=== PATIENT | male | born 1960 | race Caucasian/White ===

== ENCOUNTER 2021-10-27 09:12 | Observation (INO) | payer MEDICARE, MEDICAID, SELFPAY ==
[2021-10-27] VITALS (15 sets, daily range): BP systolic 119–184; BP diastolic 60–89; PULSE 63–81; RESP 12–20; TEMP 36.1–36.8; O2SAT 96–100; BMI 36.6; BMI 36.3
--- NOTE | 2021-10-27 09:24 | EKG12_ITS ---
Test Reason : CHEST PAIN Blood Pressure : / mmHG Vent. Rate : 081 BPM Atrial Rate : 081 BPM P-R Int : 172 ms QRS Dur : 110 ms QT Int : 424 ms P-R-T Axes : 047 006 074 degrees QTc Int : 492 ms Normal sinus rhythm Prolonged QT Poor R- wave progression Abnormal ECG Confirmed by ADRIANE GARRIDO, BRIAN ([id number]), publishing editor JASON HAMLIN ([id number]) on 10/29/2021 11:35:34 AM Referred By: RIMA Confirmed By:BRIAN FORREST MD
--- NOTE | 2021-10-27 09:25 | EDS_ITS ---
HPI <Dr. Case Reyes MD - Last Filed: 10/27/21 14:02> History of Present Illness Chief Complaint: Chest Pain Informant: patient Onset/Context/Timing Onset: Hours (1) Activity at onset: sudden, onset and light activity Timing: Continuous Quality: Positive for Aching Location: Left Chest (w/ radiation into left jaw/ear) Current Severity: Mild (jaw/ear discomfort persists now but CP resolved) Maximum Severity: Severe Worsened By: Nothing; Not Worsened By Breathing Relieved By: Nothing Associated Symptoms: Negative for Nausea, Vomiting, Diaphoresis, Dyspnea, Cough, Lightheadedness and Palpitations Narrative Narrative: Patient with about 1 hour chest discomfort radiating to the left jaw/ear, he states he checked his blood pressure and it was normal, which he later qualifies around 160 systolic, and for that reason did not try nitroglycerin. He takes aspirin and Brilinta, he had a stent in 2019 and a year or 2 later had a 2-weighted bypass. He states the chest discomfort resolved on its own, he still has some mild left jaw/ear discomfort. He states this is different than when he had his [place], he had substernal discomfort and this is left-sided. Denies any recent illness. Recent Illness/Hospitalization: No PE Risk Factors: Negative for Recent Travel/Surgery, Recent Immobilization, Prior DVT or PE, Cancer and OCP + Smoking + >/=35 PFSH <Dr. Case Reyes MD - Last Filed: 10/27/21 14:02> [facility] Medical History (Updated 10/27/21 @ 13:[address] Don Kothari MD) CAD (coronary artery disease) GERD (gastroesophageal reflux disease) Myocardial infarct Type 2 diabetes mellitus Home Medications aspirin 81 mg PO DAILY@0800 05/07/14 [History Last Taken Unknown] insulin asp prt-insulin aspart [Novolog Mix 70-30 Vial] 6 - 30 unit SQ 4X/DAY 05/07/14 [History Last Taken Unknown] insulin glargine [Lantus SoloStar Pen] 23 units SUBCUT QHS 05/07/14 [History Las t Taken Unknown] metformin 1,000 mg PO DAILY 05/07/14 [History Last Taken Unknown] tramadol 50 mg PO TID 05/07/14 [History Last Taken Unknown] gabapentin 600 mg PO DAILY 07/23/14 [History Last Taken Unknown] Ranitidine [Zantac] 150 mg PO DAILY 07/30/14 [History Last Taken Unknown] oxycodone-acetaminophen 1 - 2 tab PO 4X/DAY PRN PRN #40 tab 07/30/14 [Rx Last Taken Unknown] Allergy/AdvReac Type Severity Reaction Status Date / Time cephalexin Allergy Other Verified 10/27/21 09:24 aspirin [ASA] AdvReac Other Verified 10/27/21 09:24 naproxen sodium [From Aleve] AdvReac Other Verified 10/27/21 09:24 Surgical History (Updated 10/27/21 @ 13:[address] Don Kothari MD) Hx of CABG Hx of heart artery stent Social History Smoking Status: Former smoker ROS <Dr. Case Reyes MD - Last Filed: 10/27/21 14:02> ROS ED Constitutional Constitutional ED: Denies chills or fever(s) Eyes Eyes: Denies change in vision or diplopia ENT ENT ED: Reports as per HPI and facial pain; Denies rhinorrhea or sore throat Cardiovascular Cardiovascular: Reports chest pain and pedal edema; Denies palpitations Respiratory/Chest Respiratory/Chest: Denies cough or dyspnea Gastrointestinal Gastrointestinal: Denies abdominal pain, diarrhea, nausea or vomiting Genitourinary Genitourinary ED: Denies dysuria or hematuria Musculoskeletal Musculoskeletal: Denies back pain or neck pain Integumentary Denies abscess or rash Neurologic Neurologic: Denies headache(s), paresthesias or weakness Psychiatric Psychiatric: Denies anxiety or suicidal thoughts EXAM <Dr. Case Reyes MD - Last Filed: 10/27/21 14:02> Physical Exam Const Vital Signs: 10/27/21 09:13 10/27/21 09:30 10/27/21 10:54 Temperature 97.0 F L Temperature Source Temporal Pulse Rate 81 73 Respiratory Rate 20 H 14 Blood Pressure 177/64 H 162/61 H Blood Pressure Mean 101 94 Pulse Ox 100 97 97 Oxygen Delivery Method Room Air Nasal Cannula Oxygen Flow Rate (L/min) 2 10/27/21 11:15 10/27/21 11:55 10/27/21 12:53 Temperature Temperature Source Pulse Rate 74 71 Respiratory Rate 12 16 Blood Pressure 146/60 H 119/65 134/64 H Blood Pressure Mean 88 83 87 Pulse Ox 97 98 Oxygen Delivery Method Room Air Room Air Oxygen Flow Rate (L/min) Positive well nourished and well developed General Appearance ED: well developed and NAD HEENT Reports moist mucous membranes HEENT Narrative: Nontender throughout face. No jaw malocclusion or trouble opening/trismus normocephalic and atraumatic Eyes PERRL and EOMs intact bilaterally Neck full ROM and supple Resp normal respiratory effort and clear to auscultation bilaterally Cardio regular rate and regular rhythm Cardio Narrative: Soft systolic murmur, LLSB, 2/6 GI non-tender and non-distended Auscultation: normoactive bowel sounds Palpation: soft Back/Spine no CVA tenderness General Back: other FROM Extremity normal to inspection General Extremety ED: Yes edema; Negative for pulses abnormal or tenderness General Extremity: edema bilateral lower extremity Details: moderate (w/ chronic stasis dermatitis, nontender and no acute cellulitis); Negative for pulses abnormal Neuro oriented x3, CN's II-XII intact bilaterally and no sensory deficits noted Sensorium / Orientation: awake and alert Motor Exam: strength 5/5 throughout Skin no rashes or lesions noted and no wounds <Dr. Don Kothari MD - Last Filed: 10/27/21 13:30> Physical Exam Const Vital Signs: 10/27/21 09:13 10/27/21 09:30 10/27/21 10:54 Temperature 97.0 F L Temperature Source Temporal Pulse Rate 81 73 Respiratory Rate 20 H 14 Blood Pressure 177/64 H 162/61 H Blood Pressure Mean 101 94 Pulse Ox 100 97 97 Oxygen Delivery Method Room Air Nasal Cannula Oxygen Flow Rate (L/min) 2 10/27/21 11:15 10/27/21 11:55 10/27/21 12:53 Temperature Temperature Source Pulse Rate 74 71 Respiratory Rate 12 16 Blood Pressure 146/60 H 119/65 134/64 H Blood Pressure Mean 88 83 87 Pulse Ox 97 98 Oxygen Delivery Method Room Air Room Air Oxygen Flow Rate (L/min) <Dr. Case Reyes MD - Last Filed: 10/27/21 14:02> Heart Score History: Moderately Suspicious ECG: Normal Age: >45 - <65 years Risk Factors: >/= 3 Risk Factors or History of CAD Troponin: </= Normal Limit Score: 4 MDM <Dr. Case Reyes MD - Last Filed: 10/27/21 14:02> [facility] Narrative Medical decision making narrative: Patient was given a nitroglycerin sublingual, his jaw/neck pain resolved. He did not have any recurrence of chest or neck/jaw pain while he was here. His initial troponin was within normal limits of 14. Given the concerning symptoms, we did a delta with another measurement of 2 hours, returned still within normal limits but significantly elevated compared with the initial 1 at 74. I discussed this with cardiology Dr. Kothari, he agrees with admission and advises Lovenox at this time. Lab Data Attestation: I reviewed the patient's lab results. Labs: Laboratory Results - last 24 hr 10/27/21 10/27/21 10/27/21 09:10 09:10 09:34 WBC 8.5 RBC 4.05 L Hgb 12.1 L Hct 36.5 L MCV 90.1 MCH 29.9 MCHC 33.2 RDW Std Deviation 43.5 RDW Coeff of Juan 13.2 Plt Count 269 MPV 11.0 Immature Gran % (Auto) 0.400 Neut % (Auto) 65.8 Lymph % (Auto) 26.4 [place] % (Auto) 4.2 Eos % (Auto) 2.5 Baso % (Auto) 0.7 Absolute Neuts (auto) 5.6 Absolute Lymphs (auto) 2.24 Nucleated RBC % 0 Sodium 137 Potassium 3.7 Chloride 104 Carbon Dioxide 26.0 Anion Gap 7 BUN 16 Creatinine 1.84 H Estim Creat Clear Calc 46.86 Est GFR (MDRD) Af Amer 48 L Est GFR (MDRD) Non-Af 40 L BUN/Creatinine Ratio 8.7 L Glucose 344 H Calcium 8.4 L Troponin I High Sens 14 10/27/21 11:55 WBC RBC Hgb Hct MCV MCH MCHC RDW Std Deviation RDW Coeff of Juan Plt Count MPV Immature Gran % (Auto) Neut % (Auto) Lymph % (Auto) [place] % (Auto) Eos % (Auto) Baso % (Auto) Absolute Neuts (auto) Absolute Lymphs (auto) Nucleated RBC % Sodium Potassium Chloride Carbon Dioxide Anion Gap BUN Creatinine Estim Creat Clear Calc Est GFR (MDRD) Af Amer Est GFR (MDRD) Non-Af BUN/Creatinine Ratio Glucose Calcium Troponin I High Sens 74 Radiography Diagnostic Testing: Clinical Impression(s) from Imaging Studies Chest X-Ray 10/27/21 09:35 IMPRESSION: Hyperinflation. Prior CABG. Electronically Signed: Cuba Hackett MD at 9:59 EDT , EKG Initial EKG: Attestation: I personally reviewed and interpreted this EKG as follows: Interpretation: Sinus Rhythm and No Acute Injury Pattern Comments: Normal EKG Prior EKG tracings: available for review Prior: Unchanged <Dr. Don Kothari MD - Last Filed: 10/27/21 13:30> [facility] Lab Data Labs: Laboratory Results - last 24 hr 10/27/21 10/27/21 10/27/21 09:10 09:10 09:34 WBC 8.5 RBC 4.05 L Hgb 12.1 L Hct 36.5 L MCV 90.1 MCH 29.9 MCHC 33.2 RDW Std Deviation 43.5 RDW Coeff of Juan 13.2 Plt Count 269 MPV 11.0 Immature Gran % (Auto) 0.400 Neut % (Auto) 65.8 Lymph % (Auto) 26.4 [place] % (Auto) 4.2 Eos % (Auto) 2.5 Baso % (Auto) 0.7 Absolute Neuts (auto) 5.6 Absolute Lymphs (auto) 2.24 Nucleated RBC % 0 Sodium 137 Potassium 3.7 Chloride 104 Carbon Dioxide 26.0 Anion Gap 7 BUN 16 Creatinine 1.84 H Estim Creat Clear Calc 46.86 Est GFR (MDRD) Af Amer 48 L Est GFR (MDRD) Non-Af 40 L BUN/Creatinine Ratio 8.7 L Glucose 344 H Calcium 8.4 L Troponin I High Sens 14 10/27/21 11:55 WBC RBC Hgb Hct MCV MCH MCHC RDW Std Deviation RDW Coeff of Juan Plt Count MPV Immature Gran % (Auto) Neut % (Auto) Lymph % (Auto) [place] % (Auto) Eos % (Auto) Baso % (Auto) Absolute Neuts (auto) Absolute Lymphs (auto) Nucleated RBC % Sodium Potassium Chloride Carbon Dioxide Anion Gap BUN Creatinine Estim Creat Clear Calc Est GFR (MDRD) Af Amer Est GFR (MDRD) Non-Af BUN/Creatinine Ratio Glucose Calcium Troponin I High Sens 74 Radiography Diagnostic Testing: Clinical Impression(s) from Imaging Studies Chest X-Ray 10/27/21 09:35 IMPRESSION: Hyperinflation. Prior CABG. Electronically Signed: Cuba Hackett MD at 9:59 EDT , Discharge Plan Dx/Rx/DC Orders Clinical Impression: Unstable angina Disposition Disposition: Acute Care Hospital [facility]
[2021-10-27] MEDS: Aspirin 81 MG TAB.CHEW PO (09:35)
--- NOTE | 2021-10-27 09:35 | RAD_ITS ---
STUDY: X-RAY CHEST REASON FOR EXAM: Male, 60 years old. Chest pain TECHNIQUE: Single AP portable view of the chest. COMPARISON: Comparison is made with prior study dated 10/30/2014. FINDINGS: EKG electrodes are seen. Hyperinflation. The lungs are clear. There is no demonstrated pleural abnormality. Sternal cerclage wires and vascular clips are present from a prior sternotomy and coronary artery bypass graft procedure (CABG). Normal mediastinum and claudio. Normal visualized pulmonary arteries. Normal visualized aortic arch and descending thoracic aorta. Normal visualized thoracic spine. Normal visualized ribs, clavicles, and shoulders. There is no demonstrated abnormality of the visualized soft tissue structures of the upper abdomen. RAD/Chest 1 View (Portable) IMPRESSION: Hyperinflation. Prior CABG. Electronically Signed: Cuba Hackett MD at 9:59 EDT ,
[2021-10-27 09:38] LABS: Absolute Lymphocyte Count 2.24 X10^3/uL (0.83-4.51); Absolute Neutrophil Count 5.6 X10^3/uL (2.0-7.7); Basophil# 0.06 X10^3/uL; Basophil% 0.7 % (0-1); Eosinophil# 0.21 X10^3/uL; Eosinophils% 2.5 % (0-5); Hematocrit 36.5 % (40-54); Hemoglobin 12.1 g/dL (13.0-16.5); Lymphocyte # 2.24 X10^3/ul (0.83-4.51); Lymphocyte % 26.4 % (19-41); Mean Corp Hgb Conc 33.2 g/dL (32-36); Mean Corpuscular Hgb 29.9 pg (27.0-32.0); Mean Corpuscular Volume 90.1 fL (80-94); Monocyte# 0.36 X10^3/uL; Monocyte% 4.2 % (0-10); NRBC Flagged by Analyzer 0 % (0-5); Neutrophil # 5.58 X10^3/uL (2.7-7.7); Neutrophil % 65.8 % (47-70); Platelet Count 269 K/mm3 (150-450); RBC Distribution Width CV 13.2 % (11.6-14.6); RBC Distribution Width SD 43.5 fl (35.1-43.9); Red Blood Count 4.05 M/mm3 (4.6-6.2); White Blood Count 8.5 K/mm3 (4.4-11.0)
[2021-10-27 09:52] LABS: Anion Gap 7 (5-15); BUN 16 mg/dL (7-18); BUN/Creat Ratio 8.7 RATIO (10-20); Calcium,Total 8.4 mg/dL (8.5-10.1); Chloride 104 mmol/L (98-107); Creatinine, Serum 1.84 mg/dL (0.70-1.30); EST Glomerular Filtration Rate 40 mL/min (>60); Est Glom Filt Rate - Afr Amer 48 mL/min (>60); Estimated Creatinine Clearance 46.86 ml/min; Glucose 344 mg/dL (74-106); Potassium 3.7 mmol/L (3.5-5.1); Sodium Level 137 mmol/L (136-145)
[2021-10-27 10:04] LABS: Troponin-I HS (w/2H Reflex) 14 pg/mL (3.0-78.0)
[2021-10-27 11:42] LABS: Reflex Troponin-HS? (from REC) Y
[2021-10-27 12:26] LABS: Troponin-I HS 74 pg/mL (3.0-78.0)
--- NOTE | 2021-10-27 13:30 | CON.PCM.CA_ITS ---
Assessment & Plan Assessment/Plan (1) Unstable angina: PLAN: He does have a history of chest discomfort which appears to be recent onset angina. I would recommend that he be admitted and have his cardiac enzymes cycled Echocardiogram to assess ventricular function Lovenox 1 mg/kg If his cardiac enzymes remain normal I would recommend a pharmacologic myocardial perfusion stress test He would also remain on beta-katerine and high intensity statin Depending on those findings further recommendations will be made (2) Hypertension: PLAN: He does have a history of hypertension and he presented with elevated blood pressure. We will continue to monitor his blood pressure during this admission. (3) Hx of CABG: PLAN: He does have a history of coronary artery bypass surgery preceded by previous angioplasty and stenting. We will try and obtain these reports and further recommendations will be made. Thank you for allowing me to participate in the care of your patient. Please don't hesitate to call if any issues arise. HPI Consult Data Date of Consult: 10/27/21 HPI Narrative HPI Narrative: MIREILLE KEENE, is a 60 M who presents the emergency room complaining of chest discomfort which had been going on for approximately an hour. He does have a history of coronary artery disease status post previous angioplasty and stenting of an unknown vessel and also status post coronary bypass surgery at [facility] approximately 2 years ago. He says that he has been doing quite well but has had some baseline chest pain since his bypass surgery which has been attributed to some of the sternal wires. However this morning he started having some chest discomfort which he says radiated towards his jaw. He did not have any diaphoresis no nausea no vomiting his blood pressure was noted to be elevated and since he has recently moved to [place] he decided to present to the emergency room. An EKG done demonstrated normal sinus rhythm with a rate of 81 bpm and no acute changes his troponin was normal. However due to the type of discomfort as well as his risk factors cardiology was called for further evaluation and management. He says that he has been compliant with his medications. ON LICENSE OF [facility] Medical History (Updated 10/27/21 @ 13:[address] Don Kothari MD) CAD (coronary artery disease) GERD (gastroesophageal reflux disease) Myocardial infarct Type 2 diabetes mellitus Home Medications aspirin 81 mg PO DAILY@0800 05/07/14 [History Last Taken Unknown] insulin asp prt-insulin aspart [Novolog Mix 70-30 Vial] 6 - 30 unit SQ 4X/DAY 05/07/14 [History Last Taken Unknown] insulin glargine [Lantus SoloStar Pen] 23 units SUBCUT QHS 05/07/14 [History Last Taken Unknown] metformin 1,000 mg PO DAILY 05/07/14 [History Last Taken Unknown] tramadol 50 mg PO TID 05/07/14 [History Last Taken Unknown] gabapentin 600 mg PO DAILY 07/23/14 [History Last Taken Unknown] Ranitidine [Zantac] 150 mg PO DAILY 07/30/14 [History Last Taken Unknown] oxycodone-acetaminophen 1 - 2 tab PO 4X/DAY PRN PRN #40 tab 07/30/14 [Rx Last Taken Unknown] Allergy/AdvReac Type Severity Reaction Status Date / Time cephalexin Allergy Other Verified 10/27/21 09:24 aspirin [ASA] AdvReac Other Verified 10/27/21 09:24 naproxen sodium [From Aleve] AdvReac Other Verified 10/27/21 09:24 Surgical History (Updated 10/27/21 @ 13:[address] Don Kothari MD) Hx of CABG Hx of heart artery stent Social History Smoking Status: Former smoker ROS Constitutional Constitutional: Denies fever(s) or weight loss Eyes Eyes: Reports systems reviewed and no addt'l complaints, except as documented ENT HEENT: Reports systems reviewed and no addt'l complaints, except as documented Cardiovascular Cardiovascular: Reports chest pain at rest and chest pain with activity; Denies dyspnea at rest, dyspnea on exertion, edema, palpitations or paroxysmal nocturnal dyspnea Respiratory/Chest Respiratory/Chest: Denies dyspnea on exertion, productive cough, shortness of breath at rest or shortness of breath with exertion Gastrointestinal Gastrointestinal: Denies change in bowel habits, nausea, vomiting or weight changes Genitourinary Genitourinary: Denies difficulty urinating Musculoskeletal Musculoskeletal: Denies joint stiffness or muscle weakness Integumentary Integumentary: Denies lesions Neurologic Neurologic: Denies dizziness or syncope Psychiatric Psychiatric: Denies anxiety Endocrine Endocrinology: Denies excessive sweating or fatigue Hematologic/Lymphatic Hematologic/Lymphatic: Denies anemia Allergic/Immunologic Allergic/Immunologic: Denies seasonal rhinorrhea Physical Exam Const alert, oriented x3 and no apparent distress General Appearance: cooperative HEENT hearing grossly normal bilaterally Head and Scalp: atraumatic Eyes EOMs intact bilaterally Neck General: normal visual inspection Chest inspection of chest normal and palpation of chest normal Resp normal respiratory effort Auscultation: clear to auscultation bilaterally Cardio regular rate, regular rhythm, S1 normal heart sound and S2 normal heart sound Jugular Venous Distention: JVD GI normal to inspection, nondistended, normoactive bowel sounds Extremity normal capillary refill and no pedal edema Peripheral Pulses: Yes pulses 2+ throughout and femoral pulses present Skin no rashes or lesions noted Neuro oriented x3 and CN's II-XII intact bilaterally Psych Appearance: grossly normal and appropriate Risk Stratification Risk Stratification Applicable: Yes Age >/= 65: No >/= 3 CAD Risk Factors (HTN, HLD, DM, family hx of CAD, or current smoker): Yes Aspirin Use in the Past 7 Days: Yes Severe Angina (>/= episodes in 24 hours): Yes EKG ST Changes >/= 0.5mm: No Positive Cardiac Marker: No VILMA Risk Stratification Score: 3 VILMA % Risk: 13% Risk Objective Data Vital Signs: Vital Signs Temp Pulse Resp BP Pulse Ox 97.0 F L 71 16 134/64 H 98 10/27/21 09:13 10/27/21 12:53 10/27/21 12:53 10/27/21 12:53 10/27/21 12:53 Oxygen Flow Rate (L/min) 2 Oxygen Delivery Method Room Air Weight: 270 lb 4.587 oz Body Mass Index (BMI) 36.6 Lab / Micro Data Result Diagrams: 10/27/21 09:10 10/27/21 09:10 Labs: Laboratory Results - last 24 hr 10/27/21 09:10: WBC 8.5, RBC 4.05 L, Hgb 12.1 L, Hct 36.5 L, MCV 90.1, MCH 29.9, MCHC 33.2, RDW Std Deviation 43.5, RDW Coeff of Juan 13.2, Plt Count 269, MPV 11.0, Immature Gran % (Auto) 0.400, Neut % (Auto) 65.8, Lymph % (Auto) 26.4, [place] % (Auto) 4.2, Eos % (Auto) 2.5, Baso % (Auto) 0.7, Absolute Neuts (auto) 5.6, Absolute Lymphs (auto) 2.24, Nucleated RBC % 0 10/27/21 09:10: Sodium 137, Potassium 3.7, Chloride 104, Carbon Dioxide 26.0, Anion Gap 7, BUN 16, Creatinine 1.84 H, Estim Creat Clear Calc 46.86, Est GFR (MDRD) Af Amer 48 L, Est GFR (MDRD) Non-Af 40 L, BUN/Creatinine Ratio 8.7 L, Glucose 344 H, Calcium 8.4 L 10/27/21 09:34: Troponin I High Sens 14 10/27/21 11:55: Troponin I High Sens 74 Cardiology Labs/Tests 10/27/21 09:10: WBC 8.5, RBC 4.05 L, Hgb 12.1 L, Hct 36.5 L, MCV 90.1, MCH 29.9, MCHC 33.2, Plt Count 269, MPV 11.0, Immature Gran % (Auto) 0.400, Neut % (Auto) 65.8, Lymph % (Auto) 26.4, [place]ws % (Auto) 4.2, Eos % (Auto) 2.5, Baso % (Auto) 0.7, Absolute Neuts (auto) 5.6, Nucleated RBC % 0 10/27/21 09:10: Sodium 137, Potassium 3.7, Chloride 104, Carbon Dioxide 26.0, Anion Gap 7, BUN 16, Creatinine 1.84 H, Est GFR (MDRD) Af Amer 48 L, Est GFR (MDRD) Non-Af 40 L, BUN/Creatinine Ratio 8.7 L, Glucose 344 H, Calcium 8.4 L Rhythm: EKG: ECHO: Stress Test: Cardiac Cath: PCI: CT Surgery: Holter monitor: EPS: PPM: CXR: Chest CT Scan: Radiography Diagnostic Testing: Radiology Impression Chest X-Ray 10/27/21 09:35 IMPRESSION: Hyperinflation. Prior CABG. Electronically Signed: Cuba Hackett MD at 9:59 EDT ,
--- NOTE | 2021-10-27 13:35 | ECHOCS_ITS ---
Reason For Study: s/p CABG Procedure This was a 2D Doppler, Color Flow transthoracic echocardiogram. The study was technically difficult. Contrast injection was performed. Exam performed portable in patient room. Left Ventricle Normal LV size. Moderate concentric left ventricular hypertrophy. Left ventricular systolic function is normal. The estimated ejection fraction is 60 %. Normal diastology for age. No regional wall motion abnormalities noted. Right Ventricle Normal RV size. Normal systolic function. Atria Normal left atrium. Normal right atrium. Mitral Valve Mitral valve not well visualized. Tricuspid Valve The tricuspid valve is not well visualized. Aortic Valve Normal aortic valve. Pulmonic Valve Normal pulmonic valve. Great Vessels Normal aortic root. The pulmonary artery is normal size. Normal inferior vena cava. Pericardium/Pleural No pericardial effusion. Medication Diluted definity 2ml given slow IV push to enhance endocardial definition. MMode/2D Measurements & Calculations LVIDd: 5.3 cm IVSd: 1.2 cm LA dimension: 3.9 cm LVIDs: 2.8 cm LVPWd: 1.7 cm FS: 46.7 % LAV(MOD-bp): 55.0 ml LA A4 area: 20.5 cm2 LAV(MOD-bp) Indexed: 22.7 ml/m2 LAV(MOD-sp2): 47.1 ml LAV(MOD-sp4): 63.0 ml Time Measurements MV dec time: 0.30 sec Doppler Measurements & Calculations MV E max francisco: 172.7 cm/sec Lat Peak E' Francisco: 7.8 cm/sec Med Peak E' Francisco: 7.0 cm/sec MV A max francisco: 113.6 cm/sec E/E' lat: 22.1 E/E' med: 24.8 MV E/A: 1.5 MV V2 max: 212.8 cm/sec MV P1/2t max francisco: 213.8 cm/sec Ao V2 max: 111.6 cm/sec MV max P.1 mmHg MV P1/2t: 81.4 msec Ao max P.0 mmHg MV V2 mean: 109.9 cm/sec MV dec slope: 769.7 cm/sec2 MV mean P.8 mmHg MV V2 VTI: 55.7 cm MVA(P1/2t): 2.7 cm2 LV V1 max: 107.0 cm/sec PA V2 max: 109.8 cm/sec LV V1 max P.6 mmHg ECHO/Echo Complete W/ Contrast Interpretation Summary Normal LV size. Left ventricular systolic function is normal. The estimated ejection fraction is 60 %. Normal diastology for age. Moderate concentric left ventricular hypertrophy. Contrast injection was performed. Ordering Physician: Don Kothari Referring Physician: Key Jennings Performed By: Hawk Markham RCS
[2021-10-27] MEDS: Enoxaparin 120 MG/0.8 ML Syringe SC (14:02)
--- NOTE | 2021-10-27 14:29 | PCM.HP.STD ---
HPI - General General Date of Admission: 10/27/21 HPI Narrative MIREILLE KEENE, is a 60 M who presents to the hospital with chest pain. It started today with exertion and was not his typical pain he says that he has been getting intermittent chest pain since his CABG about 2 years ago and that his principal mechanical engineer thought that it could also be due to one of his sternal wires. He states that this pain came this morning and lasted for about an hour. He had some associated jaw pain and neck pain on the left as well. In the ER EKG was unremarkable, initial troponin was 14 but repeat troponin was 74. Cardiology was consulted and given his history of coronary artery disease felt that admission would be appropriate for observation. He did receive a dose of therapeutic Lovenox in the ER and states that he takes his aspirin and his Brilinta regularly since he had a stent placed in 2019 as well. [facility] Medical History (Updated 10/27/21 @ 13:[address] Don Kothari MD) CAD (coronary artery disease) GERD (gastroesophageal reflux disease) Myocardial infarct Type 2 diabetes mellitus Home Medications insulin glargine [Lantus SoloStar Pen] 23 units SUBCUT QHS 05/07/14 [History Last Taken Unknown] tramadol 50 mg PO TID 05/07/14 [History Last Taken Unknown] gabapentin 600 mg PO DAILY 07/23/14 [History Last Taken Unknown] amlodipine 10 mg PO DAILY 10/27/21 [History Last Taken 10/25/21] aspirin [Aspirin Low Dose] 81 mg PO DAILY 10/27/21 [History Last Taken 10/27/21] atorvastatin 40 mg PO QHS 10/27/21 [History Last Taken 10/26/21] duloxetine 30 mg PO DAILY 10/27/21 [History Last Taken 10/27/21] folic acid 800 mcg PO DAILY 10/27/21 [History Last Taken 10/27/21] gabapentin 1,200 mg PO DAILY@199910/27/21 [History Last Taken Unknown] insulin aspart U-100 20 - 35 unit SUBCUT 4X/DAY 10/27/21 [History Last Taken Unknown] levothyroxine 150 mcg PO SUMOTUWETHFR 10/27/21 [History Last Taken 10/27/21] metoprolol tartrate 25 mg PO BID 10/27/21 [History Last Taken 10/27/21] omeprazole 40 mg PO DAILY 10/27/21 [History Last Taken 10/27/21] tamsulosin 0.4 mg PO QHS 10/27/21 [History Last Taken 10/26/21] ticagrelor [Brilinta] 60 mg PO BID 10/27/21 [History Last Taken 10/27/21] Allergy/AdvReac Type Severity Reaction Status Date / Time cephalexin Allergy Other Verified 10/27/21 09:24 aspirin [ASA] AdvReac Other Verified 10/27/21 09:24 naproxen sodium [From Aleve] AdvReac Other Verified 10/27/21 09:24 Family History (Updated 10/27/21 @ 14:[address] Mich Chappell MD) Other Diabetes Hypertension Surgical History (Updated 10/27/21 @ 13:[address] Dno Kothari MD) Hx of CABG Hx of heart artery stent Social History Smoking Status: Former smoker ROS Constitutional Constitutional: Denies chills, fatigue, fever(s) or malaise Eyes Eyes: Denies blurry vision ENT HEENT: Denies headache(s) or nasal discharge Cardiovascular Cardiovascular: Reports chest pain; Denies dyspnea on exertion or syncope Respiratory/Chest Respiratory/Chest: Denies cough, shortness of breath at rest or shortness of breath with exertion Gastrointestinal Gastrointestinal: Denies constipation, diarrhea, nausea or vomiting Genitourinary Genitourinary: Denies dysuria Neurologic Neurologic: Denies focal weakness, numbness or tremor(s) Psychiatric Psychiatric: Denies anxiety or depression Vital Signs Vital Signs Vital Signs: 10/27/21 09:13 10/27/21 09:30 10/27/21 10:54 Temperature 97.0 F L Temperature Source Temporal Pulse Rate 81 73 Respiratory Rate 20 H 14 Blood Pressure 177/64 H 162/61 H Blood Pressure Mean 101 94 Pulse Ox 100 97 97 Oxygen Delivery Method Room Air Nasal Cannula Oxygen Flow Rate (L/min) 2 10/27/21 11:15 10/27/21 11:55 10/27/21 12:53 Temperature Temperature Source Pulse Rate 74 71 Respiratory Rate 12 16 Blood Pressure 146/60 H 119/65 134/64 H Blood Pressure Mean 88 83 87 Pulse Ox 97 98 Oxygen Delivery Method Room Air Room Air Oxygen Flow Rate (L/min) 10/27/21 13:00 10/27/21 14:00 10/27/21 14:03 Temperature 97.0 F L Temperature Source Temporal Pulse Rate 68 69 69 Respiratory Rate 18 16 16 Blood Pressure 169/65 H 184/68 H 184/68 H Blood Pressure Mean 99 106 106 Pulse Ox 97 98 98 Oxygen Delivery Method Room Air Room Air Room Air Oxygen Flow Rate (L/min) 2 Weight Weight: 270 lb 4.587 oz Body Mass Index (BMI) 36.6 Physical Exam Const alert, oriented x3 and no apparent distress General Appearance: cooperative Nutritional Appearance: morbidly obese HEENT normocephalic and moist oral mucous membranes Eyes PERRL, EOMs intact bilaterally and conjunctivae normal Neck supple and no JVD Resp normal respiratory effort, no retractions, no use of accessory muscles and clear to auscultation bilaterally Auscultation: Negative for crackles, rales, rhonchi or wheezes Cardio regular rate, regular rhythm, S1 normal heart sound, S2 normal heart sound and no murmurs GI soft to palpation, non-tender and non-distended; Negative for hepatosplenomegaly Extremity Extremity Narrative: Thick dry skin bilateral lower extremities General Extremity: edema bilateral lower extremity Details: trace; Negative for clubbing or cyanosis Skin no rashes or lesions noted Skin Narrative: Previous sternotomy scar Neuro no focal motor deficits and no sensory deficits noted Psych affect normal Appearance: appropriate Results Lab / Micro Data Result Diagrams: 10/27/21 09:10 10/27/21 09:10 Labs: Laboratory Results - last 24 hr 10/27/21 09:10: WBC 8.5, RBC 4.05 L, Hgb 12.1 L, Hct 36.5 L, MCV 90.1, MCH 29.9, MCHC 33.2, RDW Std Deviation 43.5, RDW Coeff of Juan 13.2, Plt Count 269, MPV 11.0, Immature Gran % (Auto) 0.400, Neut % (Auto) 65.8, Lymph % (Auto) 26.4, [place] % (Auto) 4.2, Eos % (Auto) 2.5, Baso % (Auto) 0.7, Absolute Neuts (auto) 5.6, Absolute Lymphs (auto) 2.24, Nucleated RBC % 0 10/27/21 09:10: Sodium 137, Potassium 3.7, Chloride 104, Carbon Dioxide 26.0, Anion Gap 7, BUN 16, Creatinine 1.84 H, Estim Creat Clear Calc 46.86, Est GFR (MDRD) Af Amer 48 L, Est GFR (MDRD) Non-Af 40 L, BUN/Creatinine Ratio 8.7 L, Glucose 344 H, Calcium 8.4 L 10/27/21 09:34: Troponin I High Sens 14 10/27/21 11:55: Troponin I High Sens 74 Radiology Impression Chest X-Ray 10/27/21 09:35 IMPRESSION: Hyperinflation. Prior CABG. Electronically Signed: Cuba Hackett MD at 9:59 EDT , Assessment & Plan Assessment/Plan (1) Unstable angina: PLAN: 1. Unstable angina/CAD status post stent and CABG/HTN/HLD ?We will obtain serial troponins ?Appreciate cardiology input ?If troponins are normal will proceed with a stress test ?She did receive a dose of therapeutic Lovenox in the ER ?Continue with his aspirin and Brilinta ?Continue with metoprolol, Lipitor, Norvasc 2. DM2 with neuropathy/morbid obesity ?We will hold his home diabetic medications ?Continue sliding scale insulin, as well as long-acting insulin ?Accu-Cheks AC at bedtime, will make adjustments as necessary ?Discussed lifestyle modifications for weight loss ?Continue with history of adult and his gabapentin, though given his renal function may need to decrease the dose 3. Hypothyroidism ?Stable ?Continuous Synthroid 4. GERD ?Stable ?Continue with PPI 5. BPH ?Stable ?Continue with Flomax DVT: Therapeutic Lovenox Charges/Coding Visit Charges OBSV E&M: 45234 Initial observation care L3
--- NOTE | 2021-10-27 14:45 | EKG12_ITS ---
Test Reason : CP ADMISSION Blood Pressure : / mmHG Vent. Rate : 064 BPM Atrial Rate : 064 BPM P-R Int : 232 ms QRS Dur : 104 ms QT Int : 466 ms P-R-T Axes : 045 003 061 degrees QTc Int : 480 ms Sinus rhythm with 1st degree A-V block Prolonged QT Abnormal ECG Confirmed by ALINE GARRIDO, JASWINDER ([id number]), film or videotape editor BERNARD OLGUIN ([id number]) on 10/31/2021 1:11:59 PM Referred By: MARCELLO Confirmed By:ALIVIA MIRELES MD
[2021-10-27 16:57] LABS: Troponin-I HS 200 pg/mL (3.0-78.0)
[2021-10-27] MEDS: Acetaminophen 500 MG Tablet 1000 MG PO (17:23)
[2021-10-27] MEDS: Insulin Lispro 100 UNIT/ML INSULN.PEN SC ×2 (17:26→21:08)
[2021-10-27] MEDS: Gabapentin 300 MG Capsule PO ×2 (17:29→21:15)
[2021-10-27 17:41] LABS: Bedside Glucose 258 mg/dL (74-106)
[2021-10-27] MEDS: 0.9% Normal Saline 1,000 ML 75 ML IV (18:45)
[2021-10-27] MEDS: 0.9% Saline Lock 10 ML Syringe IV ×2 (18:46→22:07)
--- NOTE | 2021-10-27 18:59 | NURSING ---
Reviewed charting with Theresa Narvaez RN
[2021-10-27] MEDS: Gabapentin 600 MG Tablet PO (19:59)
[2021-10-27] MEDS: Metoprolol Tartrate 25 MG Tablet PO (21:06)
[2021-10-27] MEDS: Tamsulosin HCl 0.4 MG Capsule PO (21:07)
[2021-10-27] MEDS: Atorvastatin Calcium 40 MG Tablet PO (21:09)
[2021-10-27] MEDS: Insulin Glargine-YFGN 100 UNIT/ML Pen 15 UNIT SC (21:12)
[2021-10-27] MEDS: traMADol 50 MG Tablet PO (21:14)
[2021-10-27] MEDS: TICAGRELOR 60 MG TABLET PO (21:15)
[2021-10-27 21:25] LABS: Bedside Glucose 272 mg/dL (74-106)
[2021-10-27] MEDS: Morphine 2 MG/ML Syringe IV (22:07)
[2021-10-28] VITALS (15 sets, daily range): BP systolic 103–146; BP diastolic 57–78; PULSE 59–66; RESP 16–18; TEMP 36.7–37.1; O2SAT 91–100
[2021-10-28] MEDS: Morphine 2 MG/ML Syringe IV (00:53)
--- NOTE | 2021-10-28 05:00 | EKG12_ITS ---
Test Reason : AM EKG Blood Pressure : / mmHG Vent. Rate : 063 BPM Atrial Rate : 063 BPM P-R Int : 176 ms QRS Dur : 102 ms QT Int : 474 ms P-R-T Axes : 000 187 107 degrees QTc Int : 485 ms Suspect arm lead reversal, interpretation assumes no reversal Normal sinus rhythm Prolonged QT Abnormal ECG Confirmed by ALINE GARRIDO, JASWINDER ([id number]), acquisition editor BERNARD OLGUIN ([id number]) on 10/31/2021 1:08:44 PM Referred By: Confirmed By:ALIVIA MIRELES MD
[2021-10-28] MEDS: Aspirin E.C. 81 MG Tablet PO (05:43)
[2021-10-28] MEDS: TICAGRELOR 60 MG TABLET PO (05:43)
[2021-10-28] MEDS: traMADol 50 MG Tablet PO ×2 (05:43→14:14)
[2021-10-28] MEDS: Losartan Potassium 25 MG Tablet PO (05:44)
[2021-10-28] MEDS: amLODIPine 10 MG Tablet PO (05:44)
[2021-10-28] MEDS: Metoprolol Tartrate 25 MG Tablet PO (05:44)
[2021-10-28] MEDS: 0.9% Normal Saline 1,000 ML 75 ML IV (05:46)
[2021-10-28 05:50] LABS: Absolute Lymphocyte Count 2.12 X10^3/uL (0.83-4.51); Absolute Neutrophil Count 3.4 X10^3/uL (2.0-7.7); Basophil# 0.05 X10^3/uL; Basophil% 0.8 % (0-1); Eosinophil# 0.16 X10^3/uL; Eosinophils% 2.6 % (0-5); Hematocrit 32.2 % (40-54); Hemoglobin 10.5 g/dL (13.0-16.5); Lymphocyte # 2.12 X10^3/ul (0.83-4.51); Lymphocyte % 33.9 % (19-41); Mean Corp Hgb Conc 32.6 g/dL (32-36); Mean Corpuscular Hgb 29.1 pg (27.0-32.0); Mean Corpuscular Volume 89.2 fL (80-94); Mean Platelet Vol. 10.7 fl (6.2-12.0); Monocyte# 0.53 X10^3/uL; Monocyte% 8.5 % (0-10); NRBC Flagged by Analyzer 0 % (0-5); Neutrophil # 3.37 X10^3/uL (2.7-7.7); Neutrophil % 53.7 % (47-70); Platelet Count 241 K/mm3 (150-450); RBC Distribution Width SD 42.4 fl (35.1-43.9); Red Blood Count 3.61 M/mm3 (4.6-6.2); White Blood Count 6.3 K/mm3 (4.4-11.0)
[2021-10-28 06:06] LABS: Bedside Glucose 332 mg/dL (74-106)
[2021-10-28] MEDS: Levothyroxine 150 MCG Tablet PO (06:13)
[2021-10-28 06:18] LABS: Anion Gap 6 (5-15); BUN 17 mg/dL (7-18); BUN/Creat Ratio 10.4 RATIO (10-20); Chloride 106 mmol/L (98-107); Cholesterol 117 mg/dL (200); Creatinine, Serum 1.64 mg/dL (0.70-1.30); EST Glomerular Filtration Rate 46 mL/min (>60); Est Glom Filt Rate - Afr Amer 55 mL/min (>60); Estimated Creatinine Clearance 52.57 ml/min; Glucose 324 mg/dL (74-106); High Density Lipoprotein 26 mg/dL; Potassium 4.1 mmol/L (3.5-5.1); Sodium Level 136 mmol/L (136-145); Triglycerides 202 mg/dL; Very Low Density Lipoprotein 40 mg/dL (5-40)
--- NOTE | 2021-10-28 07:51 | NURSING ---
Report given to Septic Pump Truck Driver RN. Pt leaves on bed to go to computer lab para professional for procedure.
[2021-10-28 07:52] LABS: Hemoglobin A1c 8.6 % (3.8-5.6)
--- NOTE | 2021-10-28 08:46 | PN.CARD_ITS ---
Subjective Subjective Seen and evaluated. Appears to be doing well. Underwent cardiac catheterization today. Objective Data Vital Signs: Vital Signs Temp Pulse Resp BP Pulse Ox 98.1 F 65 18 131/75 H 97 10/28/21 05:42 10/28/21 07:06 10/28/21 05:42 10/28/21 05:44 10/28/21 05:42 Oxygen Flow Rate (L/min) 2 Oxygen Delivery Method Room Air Weight: 267 lb 10.259 oz Body Mass Index (BMI) 36.3 Intake & Output: Intake and Output for Last 24 Hours 10/26/21 10/27/21 10/28/21 23:59 23:59 23:59 Intake Total 360 / 360 981.25 / 981.25 Output Total 200 / 200 Balance 360 / 160 781.25 / 781.25 Lab / Micro Data Result Diagrams: 10/28/21 05:20 10/28/21 05:20 Labs: Laboratory Results - last 24 hr 10/27/21 09:10: WBC 8.5, RBC 4.05 L, Hgb 12.1 L, Hct 36.5 L, MCV 90.1, MCH 29.9, MCHC 33.2, RDW Std Deviation 43.5, RDW Coeff of Juan 13.2, Plt Count 269, MPV 11.0, Immature Gran % (Auto) 0.400, Neut % (Auto) 65.8, Lymph % (Auto) 26.4, [place] % (Auto) 4.2, Eos % (Auto) 2.5, Baso % (Auto) 0.7, Absolute Neuts (auto) 5.6, Absolute Lymphs (auto) 2.24, Nucleated RBC % 0 10/27/21 09:10: Sodium 137, Potassium 3.7, Chloride 104, Carbon Dioxide 26.0, Anion Gap 7, BUN 16, Creatinine 1.84 H, Estim Creat Clear Calc 46.86, Est GFR (MDRD) Af Amer 48 L, Est GFR (MDRD) Non-Af 40 L, BUN/Creatinine Ratio 8.7 L, Glucose 344 H, Calcium 8.4 L 10/27/21 09:34: Troponin I High Sens 14 10/27/21 11:55: Troponin I High Sens 74 10/27/21 15:58: Troponin I High Sens 200 H* 10/27/21 17:22: POC Glucose 258 H 10/27/21 21:04: POC Glucose 272 H 10/28/21 05:20: Sodium 136, Potassium 4.1, Chloride 106, Carbon Dioxide 24.0, Anion Gap 6, BUN 17, Creatinine 1.64 H, Estim Creat Clear Calc 52.57, Est GFR (MDRD) Af Amer 55 L, Est GFR (MDRD) Non-Af 46 L, BUN/Creatinine Ratio 10.4, Glucose 324 H, Calcium 8.0 L, Triglycerides 202 H, Cholesterol 117, LDL Cholesterol 51, VLDL Cholesterol 40, HDL Cholesterol 26 L 10/28/21 05:20: WBC 6.3, RBC 3.61 L, Hgb 10.5 L, Hct 32.2 L, MCV 89.2, MCH 29.1, MCHC 32.6, RDW Std Deviation 42.4, RDW Coeff of Juan 13.0, Plt Count 241, MPV 10.7, Immature Gran % (Auto) 0.500, Neut % (Auto) 53.7, Lymph % (Auto) 33.9, [place] % (Auto) 8.5, Eos % (Auto) 2.6, Baso % (Auto) 0.8, Absolute Neuts (auto) 3.4, Absolute Lymphs (auto) 2.12, Nucleated RBC % 0 10/28/21 05:20: Hemoglobin A1c 8.6 H 10/28/21 05:51: POC Glucose 332 H Cardiology Labs/Tests 10/27/21 09:10: WBC 8.5, RBC 4.05 L, Hgb 12.1 L, Hct 36.5 L, MCV 90.1, MCH 29.9, MCHC 33.2, Plt Count 269, MPV 11.0, Immature Gran % (Auto) 0.400, Neut % (Auto) 65.8, Lymph % (Auto) 26.4, [place] % (Auto) 4.2, Eos % (Auto) 2.5, Baso % (Auto) 0.7, Absolute Neuts (auto) 5.6, Nucleated RBC % 0 10/27/21 09:10: Sodium 137, Potassium 3.7, Chloride 104, Carbon Dioxide 26.0, Anion Gap 7, BUN 16, Creatinine 1.84 H, Est GFR (MDRD) Af Amer 48 L, Est GFR (MDRD) Non-Af 40 L, BUN/Creatinine Ratio 8.7 L, Glucose 344 H, Calcium 8.4 L 10/28/21 05:20: Sodium 136, Potassium 4.1, Chloride 106, Carbon Dioxide 24.0, An ion Gap 6, BUN 17, Creatinine 1.64 H, Est GFR (MDRD) Af Amer 55 L, Est GFR (MDRD) Non-Af 46 L, BUN/Creatinine Ratio 10.4, Glucose 324 H, Calcium 8.0 L, Triglycerides 202 H, Cholesterol 117, LDL Cholesterol 51, VLDL Cholesterol 40, HDL Cholesterol 26 L 10/28/21 05:20: WBC 6.3, RBC 3.61 L, Hgb 10.5 L, Hct 32.2 L, MCV 89.2, MCH 29.1, MCHC 32.6, Plt Count 241, MPV 10.7, Immature Gran % (Auto) 0.500, Neut % (Auto) 53.7, Lymph % (Auto) 33.9, [place] % (Auto) 8.5, Eos % (Auto) 2.6, Baso % (Auto) 0.8, Absolute Neuts (auto) 3.4, Nucleated RBC % 0 10/28/21 05:20: Hemoglobin A1c 8.6 H Rhythm: EKG: ECHO: Stress Test: Cardiac Cath: PCI: CT Surgery: Holter monitor: EPS: PPM: CXR: Chest CT Scan: Radiography Diagnostic Testing: Radiology Impression Chest X-Ray 10/27/21 09:35 IMPRESSION: Hyperinflation. Prior CABG. Electronically Signed: Cuba Hackett MD at 9:59 EDT , Echocardiogram 10/27/21 13:35 Interpretation Summary Normal LV size. Left ventricular systolic function is normal. The estimated ejection fraction is 60 %. Normal diastology for age. Moderate concentric left ventricular hypertrophy. Contrast injection was performed. Ordering Physician: Don Kothari Referring Physician: Key Jennings Performed By: Hawk Markham RCS Assessment & Plan Assessment/Plan (1) Unstable angina: PLAN: He does have a history of chest discomfort which appears to be recent onset angina. * Cardiac catheterization done today demonstrates normal left main coronary artery. Left anterior descending artery with mild disease and competitive flow. Left circumflex artery which is severely diseased. Dominant right coronary artery previously stented and patent with an occluded posterior descending artery Left internal mammary artery to left anterior descending artery which is patent. Saphenous vein graft to the posterior descending artery which is patent. Preserved left ventricular systolic function. Based on the above angiographic findings the patient would be treated with medical therapy. (2) Hypertension: PLAN: He does have a history of hypertension and he presented with elevated blood pressure. We will continue to monitor his blood pressure during this admission. We will continue his beta-katerine and ARB (3) Hx of CABG: PLAN: He does have a history of coronary artery bypass surgery preceded by previous angioplasty and stenting. The reports are as noted above. Thank you for allowing me to participate in the care of your patient. Please don't hesitate to call if any issues arise.
--- NOTE | 2021-10-28 09:09 | CL.D_ITS ---
Patient Name: MIREILLE KEENE Study Date: 10/28/2021 Performing: Don Kothari MD Ht: 72 inches 183 cm : 1960 Wt: 267.1 lbs 121 kg Age: 60 Gender: male BSA: 2.41 PROCEDURE(S) PERFORMED [id number])LHC/COR/CABG CLINICAL PROFILE AND INDICATIONS Indications: Suspected CAD Heart Failure: None Stress/Imaging Stress/Image Study Performed: No CONCLUSIONS Diffuse coronary artery disease especially involving the left circumflex artery with patent grafts to the LAD and the right coronary artery and preserved ejection fraction. RECOMMENDATIONS Medical therapy DESCRIPTION OF PROCEDURE The patient arrived to the procedure lab. The risks and benefits of the procedure as well as a full d escription of our services here and current unavailability of surgical backup were fully explained to the patient and/or their significant other prior to the catheterization. The Timeout was completed, verifying the correct patient and procedure. The patient's procedural site was prepped and draped in the usual fashion. Local anesthetic was given subcutaneously to right groin region with Lidocaine 2%. Using a modified Seldinger technique, Left Coronary Artery selective angiography was performed in multiple views using a 5 Fr. JL4 catheter. Right Coronary Artery selective angiography was then perfo rmed in multiple views using a 5 Fr. 3DRC (Sea) catheter. Saphenous Vein graft to the RPDA selec tive angiography was performed in multiple views using a 5 Fr. 3DRC (Sea) catheter. Left interna l mammary artery graft to the LAD selective angiography was performed in multiple views using a 5 Fr. 3DRC (Sea) catheter.Contrast was injected through the sheath and the Right Iliac a nd Femoral artery were assessed for possible closure device.The arterial sheath was pulled and a Mynx closure device was deployed for hemostasis CORONARY ANGIOGRAPHY DOMINANCE: Right Dominant LEFT HEART ASSESSMENT Left Ventricular Ejection Fraction: by Echo 60 % Normal LV wall motion Normal Left Ventricular systolic function LEFT MAIN: No significant disease noted LEFT ANTERIOR DESCENDING ARTERY: Moderate luminal irregularities up to 50% CIRCUMFLEX ARTERY: Diffusely diseased up to 80 % RIGHT CORONARY ARTERY: Previously placed stent is patent RT PDA: Ostial - is occluded GRAFTS: LITTLE graft to the Mid LAD is patent Saphenous Vein graft to the RPDA is patent COMPLICATIONS No Complications PROCEDURE MEDICATIONS Versed 1 mg IV Fentanyl 50 mcg IV Versed 1 mg IV Oxygen: 2 L/min via nasal cannula SUMMARY OF HEMODYNAMIC DATA Time AIR REST ECG 08:04:08 AO 173/65 (105) SA 08:18:49 AO 147/62 (96) 08:19:56 Signed By Don Kothari MD On 10/28/2021 09:08:31 Don Kothari MD
[2021-10-28] MEDS: Glycerin/Hypromellose/PEG400 15 ml Bottle 1 DRP RIGHT EYE (10:36)
[2021-10-28] MEDS: Pantoprazole Sodium 40 MG Tablet PO (10:36)
[2021-10-28] MEDS: Folic Acid 1 MG Tablet PO (10:36)
[2021-10-28] MEDS: Metoprolol Tartrate 50 MG Tablet PO (10:36)
[2021-10-28] MEDS: DULoxetine Hcl 30 MG Capsule PO (10:37)
[2021-10-28] MEDS: Insulin Lispro 100 UNIT/ML INSULN.PEN SC (10:54)
[2021-10-28 11:16] LABS: Bedside Glucose 322 mg/dL (74-106)
[2021-10-28] MEDS: Acetaminophen 325 MG Tablet PO (12:12)
--- NOTE | 2021-10-28 13:08 | NURSING ---
Pt walked n halls following bedrest. Postop puncture intact. No bleeding
--- NOTE | 2021-10-28 13:17 | DS.PCM_ITS ---
Providers Date of Admission: 10/27/21 Primary Care Physician: Dr. Key Jennings MD Consultations 10/27/21 15:15 Consult: Cardiology Routine Consulting Provider: Don Kothari Reason for Consult: Chest pain EMERGENT Consult: No MD Notified: Yes Date Notified: 10/27/21 Time Notified: 13:45 Method of Notification: Verbal Reason For Visit: chest pain Diagnosis Discharge Diagnosis (1) Unstable angina: Status: Acute Code(s): I20.0 - Unstable angina (2) Hypertension: Status: Deleted Code(s): I10 - Essential (primary) hypertension (3) Hx of CABG: Status: Inactive Code(s): Z95.1 - Presence of aortocoronary bypass graft Medications at Discharge Home Medications Lantus Solostar U-100 Insulin 44 units SUBCUT QHS 05/07/14 tramadol 50 mg PO TID 05/07/14 gabapentin 600 mg PO DAILY@1600,2200 07/23/14 Brilinta 60 mg PO BID 10/27/21 amlodipine 10 mg PO DAILY 10/27/21 aspirin [Aspirin Low Dose] 81 mg PO DAILY 10/27/21 atorvastatin 40 mg PO QHS 10/27/21 duloxetine 30 mg PO DAILY 10/27/21 folic acid 800 mcg PO DAILY 10/27/21 gabapentin 1,200 mg PO DAILY@199910/27/21 insulin aspart U-100 20 - 35 unit SUBCUT 4X/DAY 10/27/21 levothyroxine 150 mcg PO SUMOTUWETHFR 10/27/21 omeprazole 40 mg PO DAILY 10/27/21 tamsulosin 0.4 mg PO QHS 10/27/21 losartan 25 mg PO DAILY #30 tab 10/28/21 metoprolol tartrate 50 mg PO BID #60 tab 10/28/21 Hospital Course Operations None Procedures 2-D Echocardiogram and Cardiac catheterization Summary of Care Provided Minutes Spent on Discharge: 39 Hospital Course: Mr. Anderson is a 60-year-old white male who presented to the emergency department at [facility] on 10/27/2021 with a chief complaint of chest discomfort that had been ongoing for approximately 1 hour prior to presentation. The patient does have a known history of coronary artery disease and has had previous angioplasty with stenting as well as history of coronary artery bypass grafting at [facility] 2 years ago. He noted that he had been doing quite well since his bypass but on the a.m. of admission started having chest discomfort that radiated towards his jaw. He denied any concurrent diaphoresis, nausea, vomiting or shortness of breath. His blood pressure was elevated on admission. His EKG demonstrated normal sinus rhythm with a rate of 81 bpm and no acute changes. His initial troponin was 14. Given his history and chest pain he was admitted to PCU. As noted his initial troponin was 14 however he had increased from 14-74 on his second troponin and then 200 on his third troponin. He was given Lovenox full dose in the emergency department with a rate of rise in his troponin and cardiology took him to the cardiac catheterization lab on 10/28/2021. An echocardiogram was done on the day of admission and showed an EF of 60% with normal diastology for age but moderate concentric LVH. His cardiac catheterization showed diffuse coronary artery disease especially involving the left circumflex artery with patent grafts to the LAD and right coronary artery as well as a preserved ejection fraction. Given these findings medical therapy was recommended. His beta-katerine was increased from 25 mg p.o. twice daily to 50 mg twice daily and losartan 25 mg daily was added to his regimen. He was discharged with prescriptions for these. He is to continue his Brilinta, aspirin, and atorvastatin. He was discharged home after recovery from his cardiac catheterization and had no issues at the catheterization site in his right groin. Discharged home in stable condition on 10/28/2021. He is to follow-up with his primary care physician in 1 to 2 weeks and with cardiology in 3 months. I would recommend referral for outpatient polysomnography to be done as I do suspect the patient has obstructive sleep apnea. Discharge diagnoses: Unstable angina CAD History of coronary artery bypass grafting Hypertension Hyperlipidemia DM-2 CKD stage IIIb Diabetic neuropathy Morbid obesity Hypothyroidism GERD BPH Depression Chronic pain History of tobacco abuse Obesity Suspected obstructive sleep apnea Physical Exam Const alert, oriented x3, no apparent distress, healthy appearing and well nourished Constitutional Narrative: Obese upper middle-aged white male who appears older than stated age, lying in bed, watching television, appears comfortable and nontoxic General Appearance: cooperative, comfortable, well kempt and well developed Orientation / Consciousness: awake Exam Limitations: no limitations Nutritional Appearance: obese HEENT normocephalic, head/scalp atraumatic and moist oral mucous membranes HEENT Narrative: Mallampati is 3, no thrush, smaller than average oropharynx, mildly hard of hearing Eyes PERRL, EOMs intact bilaterally and conjunctivae normal Eyes Narrative: No scleral icterus Neck no lymphadenopathy, supple and no JVD Neck Narrative: Trachea midline, no thyroid management, short thick neck Resp normal respiratory effort, no retractions, no use of accessory muscles and clear to auscultation bilaterally Resp Narrative: Diminished diffusely but clear Auscultation: Negative for crackles, rales, rhonchi or wheezes Cardio regular rate, regular rhythm, S1 normal heart sound, S2 normal heart sound, no murmurs, no rub, no gallops, no clicks and no JVD GI normal to inspection, nondistended, normoactive bowel sounds, soft to palpation, non-tender and non-distended; Negative for hepatosplenomegaly Extremity no clubbing, cyanosis or edema Extremity Narrative: Right groin with dressing intact, no bruit, minimal tenderness, no ecchymosis, soft Skin no rashes or lesions noted, no wounds, skin turgor normal and no jaundice Neuro oriented x3, CN's II-XII intact bilaterally, moves all extremities and no focal motor deficits Sensorium / Orientation: awake and alert Speech: speech normal Psych affect normal Psych Narrative: Very pleasant and appropriately interactive Weight / BMI Weight Weight: 121.4 kg Body Mass Index (BMI) 36.3 ABG / Lab / Microbiology Data Result Diagrams: 10/28/21 05:20 10/28/21 05:20 Laboratory: Laboratory Results - last 24 hr 10/27/21 15:58: Troponin I High Sens 200 H* 10/27/21 17:22: POC Glucose 258 H 10/27/21 21:04: POC Glucose 272 H 10/28/21 05:20: Sodium 136, Potassium 4.1, Chloride 106, Carbon Dioxide 24.0, Anion Gap 6, BUN 17, Creatinine 1.64 H, Estim Creat Clear Calc 52.57, Est GFR (MDRD) Af Amer 55 L, Est GFR (MDRD) Non-Af 46 L, BUN/Creatinine Ratio 10.4, Glucose 324 H, Calcium 8.0 L, Triglycerides 202 H, Cholesterol 117, LDL Cholesterol 51, VLDL Cholesterol 40, HDL Cholesterol 26 L 10/28/21 05:20: WBC 6.3, RBC 3.61 L, Hgb 10.5 L, Hct 32.2 L, MCV 89.2, MCH 29.1, MCHC 32.6, RDW Std Deviation 42.4, RDW Coeff of Juan 13.0, Plt Count 241, MPV 10. 7, Immature Gran % (Auto) 0.500, Neut % (Auto) 53.7, Lymph % (Auto) 33.9, [place] % (Auto) 8.5, Eos % (Auto) 2.6, Baso % (Auto) 0.8, Absolute Neuts (auto) 3.4, Absolute Lymphs (auto) 2.12, Nucleated RBC % 0 10/28/21 05:20: Hemoglobin A1c 8.6 H 10/28/21 05:51: POC Glucose 332 H 10/28/21 10:52: POC Glucose 322 H Radiography Diagnostic Testing: Radiology Impression Echocardiogram 10/27/21 13:35 Interpretation Summary Normal LV size. Left ventricular systolic function is normal. The estimated ejection fraction is 60 %. Normal diastology for age. Moderate concentric left ventricular hypertrophy. Contrast injection was performed. ___ Ordering Physician: Don Kothari Referring Physician: Key Jennings Performed By: Hawk Markham RCS Meaningful Use Info Meaningful Use Diagnoses (Choose all that apply): None applicable Discharge Plan Admission Admit Date/Time: 10/27/21 13:40 Primary Reason for Your Visit: Chest Pain Attending Provider: Amie Canchola Primary Care Provider: Key Jennings Consulting Providers: Don Kothari Discharge Orders/Prescriptions Prescriptions: New losartan 25 mg Tablet 25 mg PO DAILY Qty: 30 RF: 0 metoprolol tartrate 50 mg Tablet 50 mg PO BID Qty: 60 RF: 0 Continued tramadol 50 MG tablet 50 mg PO TID RF: 0 Lantus Solostar U-100 Insulin 100 UNITS/ML insulin pen 44 units subcut QHS RF: 0 gabapentin 600 MG tablet 600 mg PO DAILY@1600,2200 RF: 0 atorvastatin 40 mg tablet 40 mg PO QHS RF: 0 gabapentin 600 mg tablet 1,200 mg PO DAILY@2000 RF: 0 omeprazole 40 mg capsule,delayed release(DR/EC) 40 mg PO DAILY RF: 0 aspirin [Aspirin Low Dose] 81 mg Tablet,Delayed Release (Dr/Ec) 81 mg PO DAILY RF: 0 tamsulosin 0.4 mg capsule 0.4 mg PO QHS RF: 0 amlodipine 10 mg tablet 10 mg PO DAILY RF: 0 insulin aspart U-100 100 unit/mL solution 20 - 35 unit subcut 4X/DAY RF: 0 levothyroxine 150 mcg tablet 150 mcg PO SUMOTUWETHFR RF: 0 folic acid 800 mcg tablet 800 mcg PO DAILY RF: 0 duloxetine 30 mg capsule,delayed release(DR/EC) 30 mg PO DAILY RF: 0 Brilinta 60 mg tablet 60 mg PO BID RF: 0 Discontinued metoprolol tartrate 25 mg tablet 25 mg PO BID RF: 0 Referrals / Follow Up: Key Jennings MD [Primary Care Provider] - In 1 Week Don Kothari MD [STAFF PHYSICIAN] - Within 3 Months Disposition Disposition (needs filled in before D/C Order can be placed): Home, Self Care Charges/Coding Visit Charges Inpatient E&M: 64495 Disch Hosp
--- NOTE | 2021-10-28 14:52 | NURSING ---
Reviewed charting with Theresa Narvaez RN
== END 2021-10-28 08:43 | disposition home or self-care (01) ==
LOC: ED 13:54 → PCU 14:06
PROVIDERS: Admitting Provider Family Medicine; Emergency Provider Emergency Medicine; PCP Internal Medicine; Visit Provider Internal Medicine
DX: I25.110 Atherosclerotic heart disease of native coronary artery with unstable angina pectoris (principal); E11.40 Type 2 diabetes mellitus with diabetic neuropathy, unspecified; E11.22 Type 2 diabetes mellitus with diabetic chronic kidney disease; E66.01 Morbid (severe) obesity due to excess calories; Z79.4 Long term (current) use of insulin; N18.32 Chronic kidney disease, stage 3b; I12.9 Hypertensive chronic kidney disease with stage 1 through stage 4 chronic kidney disease, or unspecified chronic kidney disease; E03.9 Hypothyroidism, unspecified; E78.5 Hyperlipidemia, unspecified; G89.29 Other chronic pain; N40.0 Benign prostatic hyperplasia without lower urinary tract symptoms; K21.9 Gastro-esophageal reflux disease without esophagitis; Z79.899 Other long term (current) drug therapy; Z79.890 Hormone replacement therapy; Z79.02 Long term (current) use of antithrombotics/antiplatelets; Z87.891 Personal history of nicotine dependence; Z79.82 Long term (current) use of aspirin; I25.2 Old myocardial infarction; Z95.1 Presence of aortocoronary bypass graft; Z68.36 Body mass index [BMI] 36.0-36.9, adult
CPT/HCPCS: 36415; 71045; 80048; 80061; 82962; 83036; 84484; 85025; 93005; 93306; 93455; 96361; 96372; 96374; 96376; 99152; 99153; 99218; 99285; C1760; J7030; Q9957; Q9967; A4216; C1769; C8929; G0378

== ENCOUNTER 2023-07-14 13:13 | Emergency (ER) | payer MEDICARE, MEDICAID, SELFPAY ==
[2023-07-14 13:13] VITALS: BP 86/60; PULSE 75; RESP 14; TEMP 36.1; O2SAT 98; BMI 36.0
--- NOTE | 2023-07-14 13:52 | EX.ED.DYSGE1 ---
HPI History of Present Illness Chief Complaint: Head Injury Detail of Chief Complaint: Chief complaint is not head injury but syncopal episode Informant: patient Onset/Context/Timing Onset: Today and Hours Context: Sudden Onset Timing: Intermittent Quality: Patient states she kenneth from bending over to feed his cats. He sat down. Location: Home Current Severity: Mild Maximum Severity: Patient has no recall Worsened by: Unknown Relieved by: Unknown Associated Symptoms Associated Symptoms: Nothing Narrative Narrative: Patient is a 62-year-old male with history of coronary artery disease status post bypass surgery, hypertension, peripheral vascular disease, and tobacco use who states he bent over to feed his cats. He then stood up and sat down. The next thing he recalls is that he was on the floor. He denies headache. He denies head pain. He denies double vision, blurred vision or loss of vision. He denies lambert ears or decreased hearing. He denies chest pain. He denies shortness of breath or dyspnea on exertion. He denies abdominal pain. He denies back pain. He denies black or maroon-colored stool. He denies urologic symptoms. Patient states he feels foggy. Patient states he lives with retired nurse who encouraged that he come to the emergency department. He does admit to smoking. He occasionally have an alcoholic beverage. He denies prior sick episode. He denies history of VTE. He denies new leg pain, swelling or discoloration. He has history of venous stasis dermatitis. Prior similar symptoms: No Recent Illness/Hospitalization: No PFSH PFSH Medical History Atherosclerotic heart disease of [place] coronary artery without angina pectoris Carotid artery stenosis Chronic pain COPD (chronic obstructive pulmonary disease) Depression Diabetes Essential hypertension Former smoker GERD (gastroesophageal reflux disease) Hyperthyroidism Myocardial infarct Peripheral vascular occlusive disease Type 2 diabetes mellitus Home Medications insulin glargine 100 unit/mL (3 mL) subcutaneous pen (Lantus Solostar U-100 Insulin) 44 units subcut QHS DM 05/07/14 [History Last Taken 10/26/21] tramadol 50 mg tablet 50 mg PO TID PAIN 05/07/14 [History Last Taken 10/27/21] gabapentin 600 mg tablet 600 mg PO DAILY@1600,2200 NERUOPATHY 07/23/14 [History Last Taken 10/26/21] amlodipine 10 mg tablet 10 mg PO DAILY BP 10/27/21 [History Last Taken 10/25/21] aspirin 81 mg tablet,delayed release (Constantine Low Dose Aspirin) 81 mg PO DAILY heart health 10/27/21 [History Last Taken 10/27/21] atorvastatin 40 mg tablet 40 mg PO QHS CHOLESTEROL 10/27/21 [History Last Taken 10/26/21] duloxetine 30 mg capsule,delayed release 30 mg PO DAILY mental health 10/27/21 [History Last Taken 10/27/21] folic acid 800 mcg tablet 800 mcg PO DAILY supplement 10/27/21 [History Last Taken 10/27/21] gabapentin 600 mg tablet 1,200 mg PO DAILY@2000 NEUROPATHY 10/27/21 [History Last Taken 10/26/21] insulin aspart U-100 100 unit/mL subcutaneous solution 20 - 35 unit subcut 4X/DAY diabetes 10/27/21 [History Last Taken 10/27/21] levothyroxine 150 mcg tablet 150 mcg PO SUMOTUWETHFR THYROID 10/27/21 [History Last Taken 10/27/21] omeprazole 40 mg capsule,delayed release 40 mg PO DAILY GERD 10/27/21 [History Last Taken 10/27/21] tamsulosin 0.4 mg capsule 0.4 mg PO QHS PROSTATE 10/27/21 [History Last Taken 10/26/21] ticagrelor 60 mg tablet (Brilinta) 60 mg PO BID BLOOD THINNER 10/27/21 [History Last Taken 10/27/21] losartan 25 mg tablet 25 mg PO DAILY #30 tabs 10/28/21 [Rx Last Taken Unknown] metoprolol tartrate 50 mg tablet 50 mg PO BID #60 tabs 10/28/21 [Rx Last Taken Unknown] Allergy/AdvReac Type Severity Reaction Status Date / Time cephalexin Allergy Other Verified 07/14/23 13:13 aspirin [ASA] AdvReac Other Verified 07/14/23 13:13 naproxen sodium [From Aleve] AdvReac Other Verified 07/14/23 13:13 Family History Other Diabetes Hypertension Surgical History H/O coronary artery bypass surgery (01/26/20) History of carotid endarterectomy History of coronary artery stent placement History of left heart catheterization (10/28/21) Social History (Updated 07/14/23 @ 13:[address] Thang Jasmine MD) household members: significant other Smoking Status: Former smoker alcohol intake: current substance use type: does not use ROS ROS ED Constitutional Constitutional ED: Denies chills, fever(s), subjective or sweats Eyes Eyes: Denies blurry vision, change in vision or diplopia ENT ENT ED: Denies ear pain, rhinorrhea or sore throat Cardiovascular Cardiovascular: Denies chest pain, orthopnea, palpitations or racing heartbeat Respiratory/Chest Respiratory/Chest: Denies cough, dyspnea, dyspnea on exertion, orthopnea or sputum Gastrointestinal Gastrointestinal: Denies abdominal pain, diarrhea, melena, nausea or vomiting Musculoskeletal Musculoskeletal: Denies arthralgias, back pain, myalgias or neck pain Integumentary Denies rash Neurologic Neurologic: Denies headache(s), paresthesias or weakness Psychiatric Psychiatric: Denies anxiety or depression Hematologic/Lymphatic Hematologic/Lymphatic: Denies systems reviewed and no addt'l complaints, except as documented Allergic/Immunologic Allergic/Immunologic ED: Denies mouth swelling or tongue swelling EXAM Physical Exam Narrative Exam Narrative: Blood pressure is noted to be low. He is not bradycardic. Const Vital Signs: 07/14/23 13:13 07/14/23 13:59 07/14/23 14:19 Temperature 97 F L Temperature Source Temporal Pulse Rate 75 Respiratory Rate 14 Respiratory Effort Normal Non-Labored Respiratory Depth Normal Respiratory Pattern Normal Blood Pressure 86/60 L 122/56 H Blood Pressure Mean 68 78 Pulse Ox 98 Oxygen Delivery Method Room Air Room Air 07/14/23 15:19 07/14/23 16:00 07/14/23 17:00 Temperature Temperature Source Pulse Rate 65 Respiratory Rate 12 16 18 Respiratory Effort Respiratory Depth Respiratory Pattern Blood Pressure Blood Pressure Mean Pulse Ox Oxygen Delivery Method 07/14/23 18:00 Temperature Temperature Source Pulse Rate 64 Respiratory Rate 17 Respiratory Effort Respiratory Depth Respiratory Pattern Blood Pressure 159/65 H Blood Pressure Mean 96 Pulse Ox 95 Oxygen Delivery Method Room Air Positive well nourished, well developed, obese and unkempt General Appearance ED: unkempt, well developed and NAD; Negative for pallor Nutritional Appearance: obese HEENT Reports moist mucous membranes HEENT Narrative: Head is atraumatic and normocephalic. Ears are normal. There is no clinical findings of basilar skull fracture. There is no septal deviation or hematoma. There is no dental trauma. Eyes PERRL and EOMs intact bilaterally General Eye ED: Negative for pale conjunctiva or scleral icterus Neck no lymphadenopathy, supple and no JVD General: Negative for tenderness Chest Wall inspection of chest normal and palpation of chest normal Resp normal respiratory effort and clear to auscultation bilaterally Effort and Inspection: Negative for pain with movement Cardio regular rate, regular rhythm, S1 normal heart sound, S2 normal heart sound and no murmurs GI normal to inspection, nondistended, normoactive bowel sounds, non-tender, non-distended and no masses; Negative for hepatosplenomegaly Palpation: soft Back/Spine no CVA tenderness Cervical Spine: Negative for cervical spine tenderness Thoracic Spine / Upper Back: Negative for thoracic spinal tenderness Lumbar Spine / Lower Back: Negative for lumbar spinal tenderness Extremity Extremity Narrative: Patient has venous stasis dermatitis. There is no pitting edema. There is no asymmetry. There is no leg vein distention. There is no palpable cords or tenderness on the distribution of deep venous system. Neuro oriented x3, CN's II-XII intact bilaterally and no sensory deficits noted Neuro Narrative: GCS is 15. Sensorium / Orientation: alert Motor Exam: strength 5/5 throughout Psych mental status grossly normal Appearance: unkempt Skin no rashes or lesions noted and no wounds General Skin Exam: Negative for jaundice or pallor MDM MDM MDM Narrative Medical decision making narrative: Patient had a syncopal episode. Since patient is hypotensive he received 1 L normal saline. Will obtain EKG to rule out cardiac ischemia. Since patient has no complaint of chest pain shortness of breath no prior history of VTE and no risk factors D-dimer was not obtained. Will obtain CBC to assess white count and more importantly H&H. Competence panel panel was ordered to assess electrolytes, renal function. He does have a history of stage IIIb kidney disease. Need to evaluate for hyperkalemia which would be unlikely since his monitor reveals us sinus rhythm with narrow complex QRS. Orders were entered by other providers prior to me seeing patient. Some of these were canceled since they were not indicated. History & Record Review Additional record(s) reviewed:: Prior outpatient record (Records from [facility] were reviewed. Patient has history of stage IIIb kidney disease, cardiovascular disease status post bypass surgery, hypertension, carotid disease.), Prior ED visit (Prior/most recent ER visit was October 2021 for unstable angina.) and Prior labs Lab Data Attestation: I reviewed the patient's lab results. Lab results narrative: CBC is normal. Competence of metabolic panel is remarkable for an elevated BUN/creatinine of 25 and 2.22. Patient does have history of stage IIIb chronic kidney disease. Transaminases normal. Glucose is elevated to 66 with normal CO2 and anion gap. BNP was normal. Troponin is normal. Will obtain a 2-hour troponin. 2-hour troponin is normal. Delta is. UA is remarkable for protein, glucose, ketones and occult blood. There is urobilinogen. There is no bilirubin noted. Microscopic was normal. Patient's creatinine is elevated. This is slightly above baseline. Patient's blood pressure did improve with fluids. Labs: Laboratory Results - last 24 hr 07/14/23 07/14/23 07/14/23 14:30 15:25 15:45 WBC 8.5 RBC 4.59 L Hgb 13.3 Hct 41.4 MCV 90.2 MCH 29.0 MCHC 32.1 RDW Std Deviation 43.0 RDW Coeff of Juan 13.2 Plt Count 231 MPV 11.1 Immature Gran % (Auto) 0.200 Neut % (Auto) 63.7 Lymph % (Auto) 27.1 [place]ane % (Auto) 6.5 Eos % (Auto) 1.9 Baso % (Auto) 0.6 Absolute Neuts (auto) 5.4 Absolute Lymphs (auto) 2.30 Nucleated RBC % 0 Sodium 134 L Potassium 4.0 Chloride 102 Carbon Dioxide 27.0 Anion Gap 5 BUN 25 H Creatinine 2.22 H Estim Creat Clear Calc 37.87 Est GFR (MDRD) Af Amer 39 L Est GFR (MDRD) Non-Af 32 L BUN/Creatinine Ratio 11.3 Glucose 266 H Calcium 8.8 Total Bilirubin 0.70 AST 17 ALT 20 Alkaline Phosphatase 97 Troponin I High Sens 16 16 B-Natriuretic Peptide 72.3 Total Protein 7.1 Albumin 3.4 Globulin 3.7 Albumin/Globulin Ratio 0.9 Urine Color Yellow Urine Clarity Clear Urine pH 5.0 Ur Specific [place] 1.020 Urine Protein 500 H Urine Glucose (UA) 100 H Urine Ketones 5 H Urine Occult Blood 10 H Urine Nitrite Negative Urine Bilirubin Negative Urine Urobilinogen 4 H Ur Leukocyte Esterase Negative Urine RBC 0 SEEN Urine WBC 0-5 SEEN Ur Squamous Epith Cells 0-5 SEEN Urine Bacteria 0 SEEN Urine Mucus 0 SEEN POC Glucose 07/14/23 17:16 WBC RBC Hgb Hct MCV MCH MCHC RDW Std Deviation RDW Coeff of Juan Plt Count MPV Immature Gran % (Auto) Neut % (Auto) Lymph % (Auto) [place] % (Auto) Eos % (Auto) Baso % (Auto) Absolute Neuts (auto) Absolute Lymphs (auto) Nucleated RBC % Sodium Potassium Chloride Carbon Dioxide Anion Gap BUN Creatinine Estim Creat Clear Calc Est GFR (MDRD) Af Amer Est GFR (MDRD) Non-Af BUN/Creatinine Ratio Glucose Calcium Total Bilirubin AST ALT Alkaline Phosphatase Troponin I High Sens B-Natriuretic Peptide Total Protein Albumin Globulin Albumin/Globulin Ratio Urine Color Urine Clarity Urine pH Ur Specific [place] Urine Protein Urine Glucose (UA) Urine Ketones Urine Occult Blood Urine Nitrite Urine Bilirubin Urine Urobilinogen Ur Leukocyte Esterase Urine RBC Urine WBC Ur Squamous Epith Cells Urine Bacteria Urine Mucus POC Glucose 205 H EKG Initial EKG: Attestation: I personally reviewed and interpreted this EKG as follows: Interpretation: Sinus Rhythm (Patient has a first-degree heart block with a rate of 69. ME interval is 210 ms. QRS duration 96 ms. QT duration 442 ms. [place] is normal.) Treatment and Re-Evaluation :: Patient was hydrated and observed. His blood pressure is now above his normal. Plan is to discharge to home. Discharge Plan Triage Chief Complaint: Head Injury ED Provider: Thang Jasmine Dx/Rx/DC Orders Clinical Impression: Syncope and collapse, Atherosclerotic heart disease of [place] coronary artery without angina pectoris, Peripheral vascular occlusive disease, Sympathotonic orthostatic hypotension, Acute kidney injury superimposed on chronic kidney disease, Type 1 diabetes, Ketosis Instructions: ED Hypotension, Orthostatic Prescriptions: No Action tramadol 50 MG tablet 50 mg PO TID Patient Comments: PT TAKES TID @ BREAKFAST, SUPPER, AND QHS. Lantus Solostar U-100 Insulin 100 UNITS/ML insulin pen 44 units subcut QHS gabapentin 600 MG tablet 600 mg PO DAILY@1600,2200 atorvastatin 40 mg tablet 40 mg PO QHS Patient Comments: TAKE 1 TABLET BY MOUTH ONCE DAILY gabapentin 600 mg tablet 1,200 mg PO DAILY@1999 Patient Comments: TAKE 1/2 TABLET IN AM , THEN 1.5 TABLETS IN THE AFTERNOON, THEN 1.5 TABLETS IN THE EVENING AND HALF TABLET BEFORE BED omeprazole 40 mg capsule,delayed release(DR/EC) 40 mg PO DAILY Patient Comments: TAKE 1 CAPSULE BY MOUTH ONCE DAILY aspirin [Constantine Low Dose Aspirin] 81 mg Tablet,Delayed Release (Dr/Ec) 81 mg PO DAILY tamsulosin 0.4 mg capsule 0.4 mg PO QHS Patient Comments: TAKE 1 CAPSULE BY MOUTH ONCE DAILY AT BEDTIME amlodipine 10 mg tablet 10 mg PO DAILY Patient Comments: TAKE 1 TABLET BY MOUTH ONCE DAILY insulin aspart U-100 100 unit/mL solution 20 - 35 unit subcut 4X/DAY Patient Comments: PT TAKES 35 UNITS AT BREAKFAST, LUNCH, AND BEDTIME AND TAKES 20 UNITS AT DINNER. levothyroxine 150 mcg tablet 150 mcg PO SUMOTUWETHFR Patient Comments: DAILY EXCEPT WEDNESDAY folic acid 800 mcg tablet 800 mcg PO DAILY Patient Comments: TAKE 1 TABLET BY MOUTH ONCE DAILY duloxetine 30 mg capsule,delayed release(DR/EC) 30 mg PO DAILY Patient Comments: TAKE 1 CAPSULE BY MOUTH ONCE DAILY Brilinta 60 mg tablet 60 mg PO BID Patient Comments: TAKE 1 TABLET BY MOUTH TWICE DAILY losartan 25 mg Tablet 25 mg PO DAILY Qty: 30 0RF metoprolol tartrate 50 mg Tablet 50 mg PO BID Qty: 60 0RF Primary Care Provider: Key Jennings Referrals: Key Jennings MD [Primary Care Provider] - 3-5 Days Disposition Disposition: Home, Self Care
[2023-07-14 14:19] VITALS: BP 122/56
[2023-07-14 14:42] LABS: Absolute Neutrophil Count 5.4 X10^3/uL (2.0-7.7); Basophil# 0.05 X10^3/uL; Basophil% 0.6 % (0-1); Eosinophil# 0.16 X10^3/uL; Eosinophils% 1.9 % (0-5); Hematocrit 41.4 % (40-54); Hemoglobin 13.3 g/dL (13.0-16.5); Lymphocyte % 27.1 % (19-41); Mean Corp Hgb Conc 32.1 g/dL (32-36); Mean Corpuscular Volume 90.2 fL (80-94); Mean Platelet Vol. 11.1 fl (6.2-12.0); Monocyte# 0.55 X10^3/uL; Monocyte% 6.5 % (0-10); NRBC Flagged by Analyzer 0 % (0-5); Neutrophil # 5.41 X10^3/uL (2.7-7.7); Neutrophil % 63.7 % (47-70); Platelet Count 231 K/mm3 (150-450); RBC Distribution Width CV 13.2 % (11.6-14.6); Red Blood Count 4.59 M/mm3 (4.6-6.2); White Blood Count 8.5 K/mm3 (4.4-11.0)
[2023-07-14 14:55] LABS: BNP,B-Type NATRIURETIC PEPTIDE 72.3 pg/mL (0-100)
[2023-07-14 15:03] LABS: ALB/GLOB Ratio 0.9 RATIO (0.9-2.4); AST(SGOT) 17 U/L (15-37); Alanine Aminotransfer ALT/SGPT 20 U/L (16-61); Albumin, Serum 3.4 g/dL (3.2-5.0); Alkaline Phosphatase 97 U/L (45-117); Anion Gap 5 (5-15); BUN 25 mg/dL (7-18); BUN/Creat Ratio 11.3 RATIO (10-20); Calcium,Total 8.8 mg/dL (8.5-10.1); Chloride 102 mmol/L (98-107); Creatinine, Serum 2.22 mg/dL (0.70-1.30); EST Glomerular Filtration Rate 32 mL/min (>60); Est Glom Filt Rate - Afr Amer 39 mL/min (>60); Estimated Creatinine Clearance 37.87 ml/min; Globulin 3.7 g/dL (2.2-4.2); Glucose 266 mg/dL (74-106); Protein, Total 7.1 g/dL (6.4-8.2); Sodium Level 134 mmol/L (136-145); Troponin-I HS 16 pg/mL (3.0-78.0)
[2023-07-14] MEDS: 0.9% Normal Saline (1000mL) 1,000 ML 1000 ML IV (15:03)
[2023-07-14 15:19] VITALS: PULSE 65; RESP 12
[2023-07-14 16:00] VITALS: RESP 16
[2023-07-14 16:04] LABS: Bacteria 0 SEEN /hpf (None Seen); Mucous, Urine 0 SEEN /hpf (<or=2+); Red Blood Cells-Urine 0 SEEN /hpf (0-5)
[2023-07-14 16:17] LABS: Troponin-I HS 16 pg/mL (3.0-78.0)
[2023-07-14 16:18] LABS: Color, Urine Yellow (Yellow); Glucose, Dipstick 100 mg/dl (Normal); Ketone-Dipstick 5 mg/dl (Negative); Leukocyte Esterase-Dipstick Negative /ul (Negative); Nitrite-Dipstick Negative (Negative); Occult Blood-Urine 10 /ul (Negative); Protein-Dipstick 500 mg/dl (Negative); Urine Bilirubin Dipstick Negative (Negative); Urine Clarity Clear (Clear); Urine Urobilinogen 4 mg/dl (Normal)
[2023-07-14 16:38] LABS: Squamous Epithelial Cells - UA 0-5 SEEN /hpf (0-5); White Blood Cells 0-5 SEEN /hpf (0-5)
[2023-07-14 17:00] VITALS: RESP 18
[2023-07-14 17:34] LABS: Bedside Glucose 205 mg/dL (74-106)
[2023-07-14 18:00] VITALS: BP 159/65; PULSE 64; RESP 17; O2SAT 95
== END 2023-07-14 18:44 | disposition home or self-care (01) ==
PROVIDERS: Emergency Medicine; Emergency Provider Emergency Medicine; PCP Internal Medicine; Visit Provider Emergency Medicine
DX: R55 Syncope and collapse (principal); E10.51 Type 1 diabetes mellitus with diabetic peripheral angiopathy without gangrene; N17.9 Acute kidney failure, unspecified; J44.9 Chronic obstructive pulmonary disease, unspecified; E10.22 Type 1 diabetes mellitus with diabetic chronic kidney disease; E10.10 Type 1 diabetes mellitus with ketoacidosis without coma; I25.10 Atherosclerotic heart disease of native coronary artery without angina pectoris; N18.9 Chronic kidney disease, unspecified; I25.2 Old myocardial infarction; E66.9 Obesity, unspecified; I95.1 Orthostatic hypotension; Z95.1 Presence of aortocoronary bypass graft; Z95.5 Presence of coronary angioplasty implant and graft; Z87.891 Personal history of nicotine dependence
CPT/HCPCS: 80053; 81001; 82962; 83880; 84484; 85025; 93005; 99284; J7030; A4216